=== PATIENT | female | born 1995 | race American Indian/Alaskan Native ===

== ENCOUNTER 2018-11-05 08:26 | Outpatient (CLI) | payer BC | END 2018-11-05 08:27 | disposition home or self-care (01) | LOC: C.PAT 08:26 | DX: Z30.2 Encounter for sterilization (principal) ==

== ENCOUNTER 2018-11-22 05:55 | Day surgery (SDC) | payer BC ==
[2018-04-30 16:44] VITALS: BMI 28.0
[2018-11-22] MEDS ORDERED: ceFAZolin 1 gm in NS 0 GM/0 ML BAG IVPB ONE (07:27)
[2018-11-22] MEDS ORDERED: Bupivacaine 0.25% 20 ML INJ IJ ONE (07:27)
[2018-11-22] MEDS ORDERED: Lidocaine/Epinephrine 1% 1:100000 10 ML IJ ONE (07:28)
[2018-11-22] MEDS ORDERED: Propofol 10 mg/ml Inj (20 ML) ONE (08:07)
[2018-11-22] MEDS ORDERED: Midazolam 2 MG/2 ML VIAL ONE (08:07)
[2018-11-22] MEDS ORDERED: Rocuronium 10 mg/ml (5 ml) ONE (08:24)
[2018-11-22] MEDS ORDERED: Neostigmine 1:1000 (1 mg/ml) Inj ONE (09:48)
[2018-11-22] MEDS ORDERED: Dexamethasone 4 mg/1 ml IVP PRN (09:49)
[2018-11-22] MEDS: HYDROmorphone 0.5 mg/0.5 ml ISec IVP PRN ×2 (10:13→10:32)
[2018-11-22 11:18] VITALS: O2SAT 100
[2018-11-22 11:30] VITALS: RESP 18
[2018-11-22 12:24] VITALS: BP 120/60; PULSE 100; TEMP 97.8
--- NOTE | 2018-11-23 02:59 | OP ---
PROCEDURE DATE: 11/22/2018 PREOPERATIVE DIAGNOSES: Multiparity, desires permanent sterilization, and pelvic pain. POSTOPERATIVE DIAGNOSES: Multiparity, desires permanent sterilization, and pelvic pain. PROCEDURE PERFORMED: Robotic bilateral salpingectomy. SURGEON: Priya Valdez MD DOCUMENT MANAGEMENT SPECIALIST: DAVID Waggoner. Elvira Gonzalez was the surgical coder, present for the entire case and assisted in gaining entry robotically, laparoscopically, lysis of adhesions, obtaining hemostasis, and removing specimens and was present for the entire case. OPERATIVE FINDINGS: Ten-week size anteverted uterus, enlarged right fallopian tube, normal-appearing left fallopian tube, and normal-appearing uterus and ovaries bilaterally. ESTIMATED BLOOD LOSS: 5 mL. BLOOD PRODUCTS: None. COMPLICATIONS: None. SPECIMEN: Right and left fallopian tubes. DESCRIPTION OF PROCEDURE: The patient was taken to the operating room, where she was given general anesthesia. Once it was found to be adequate, she was placed on the operating table in dorsal supine position with legs supported using stirrups in usual fashion. A time-out was performed confirming correct patient and correct procedure. Bimanual exam was performed with the above-mentioned findings. A Gonzalez retractor was placed in the anterior and posterior fornix of the vagina. The cervix was adequately visualized. A single-tooth tenaculum was placed in the anterior lip of the cervix. The uterus was sounded to 7 cm. Following this, the cervix was sequentially dilated to allow for introduction of the HUMI uterine manipulator, which was inserted and advanced to the fundus and insufflated with 8 mL of air. After the HUMI uterine manipulator was placed, which was done after the Quinones catheter, the legs were then repositioned, and attention was then turned to the abdomen. The surgeon re-gloved. Following this, the patient was given local anesthetic supraumbilically along an 8-mm incision. Two S-retractors were then placed. The fascia was then tented up with the Mynor clamp. The fascial incision was incised with scalpel. Peritoneal entry was noted to be in and the laparoscopic port was then inserted under direct visualization with the laparoscope. Upon inspection of the peritoneal cavity, there were some adhesions noted and enlarged fallopian tubes. At that point, decision for robotic procedure was made. The camera was then removed and two 8-mm ports were placed in the right and left lower quadrant after administration of local anesthesia under direct visualization in the usual fashion. Ports were then inserted under direct visualization. The robot was then brought and docked as appropriate manufacturers. The endoscope was carefully targeted. Following this, a monopolar curved scissor was placed in arm 3 and a bipolar fenestrated device was used in arm 1. The bowel was then removed out of the operative view. The uterus was then carefully manipulated by the furniture removalist's assistant to help for possible retraction. There were clear adhesions noted that were carefully lysed using the monopolar device. Good hemostasis was noted. Following this, the distal fimbriated end along the mesosalpinx was cauterized, cut and coagulated along to the cornua of the tube, both on right and left hand side. There was good hemostasis noted. The instruments were removed through an EndoCatch bag through the port. Following this, there was good hemostasis noted. All instruments were removed. The abdomen was desufflated. After the abdomen was desufflated, the umbilical incision fascia was closed using two S-retractors and UR-6 needle. The skin was then reapproximated with 4-0 Monocryl in a running subcuticular fashion. The Quinones catheter and HUMI uterine manipulator were then removed. At the end of the procedure, all needle, sponge and instrument counts were noted to be correct x2. The patient tolerated the procedure well and was transferred to the recovery room in stable condition. Priya Valdez MD
== END 2018-11-22 12:25 | disposition home or self-care (01) ==
LOC: C.SDS 05:55
PROVIDERS: ATTEND Obstetrics & Gynecology
DX: Z30.2 Encounter for sterilization (principal)
CPT/HCPCS: 58661; 88305; J1170; J1885; J2001; J2250; J2405; J2704; J2710; J3010